=== PATIENT | male | born 1990 | race Caucasian/White ===

== ENCOUNTER 2023-09-06 11:32 | Emergency (ER) | payer SELFPAY ==
--- NOTE | ~2023-09-06 | XR_ITS ---
EXAMINATION: XR LUMBOSACRAL SPINE CLINICAL INFORMATION: Pain COMPARISON: None available. TECHNIQUE: Three views of the lumbosacral spine. FINDINGS: The vertebral bodies and posterior elements are normal. The disc spaces are preserved and the vertebral alignment is notable for severe disc space at L5-S1. Generalized endplate spurring. The paraspinal soft tissues are normal. XR/XR lumbar spine 2-3V IMPRESSION: Advanced degenerative disc disease at L5-S1 as above.
[2023-09-06 11:47] VITALS: BP 121/82; PULSE 81; RESP 17; TEMP 36.6; O2SAT 97; BMI 27.7
--- NOTE | 2023-09-06 11:47 | ED_ITS ---
HPI - General Adult General Chief complaint: General Medical Stated complaint: l leg numbness Time Seen by Provider: 09/06/23 13:27 Source: patient and RN notes reviewed Mode of arrival: ambulatory Limitations: no limitations History of Present Illness HPI narrative: This is a 33-year-old male, with no known past medical history, presenting to the emergency department with complaints of acute on chronic back pain x 5 days. Patient reports that he is in the process of moving into his significant other's apartment who lives on the 3rd floor and was caring a dresser on his own and felt a? in his low back. He has had increased pain in his back since the incident. He reports he has had intermittent lower leg numbness and tingling. He states that he has a history back pain in the past where he would occasio lilliam get numbness and tingling into his leg. He denies any current numbness and tingling into his leg. He denies saddle anesthesia, urinary or bowel incontinence. Denies any lower extremity weakness. He states that he has tried [id number] pain medication, and topical pain medication which has provided him without any relief. Denies any other complaints or concerns at this time. MD complaint: Back pain Onset (ago): day(s) Location: back Radiation: distal Severity: moderate Quality: aching Pain Consistency: constant Relieving factors: none Exacerbating factors: none Associated symptoms: denies other symptoms Treatments prior to arrival: none Related Data Previous Rx's Medication Instructions Recorded acetaminophen 650 mg 1,300 mg (2 x 650 mg) PO Q12H #30 09/06/23 tablet,extended release (Tylenol 8 tabs Hour) cyclobenzaprine 10 mg tablet 10 mg PO TID PRN muscle spasm #14 09/06/23 tabs lidocaine 5 % topical patch 1 patch topical DAILY #30 ea 09/06/23 prednisone 20 mg tablet 40 mg (2 x 20 mg) PO DAILY 5 days 09/06/23 #10 tabs Allergies Allergy/AdvReac Type Severity Reaction Status Date / Time No Known Allergies Allergy Unverified 07/27/20 16:23 Review of Systems Review of Systems: Yes all other systems are reviewed and are negative PMFSH Past Medical History Attestation statement: The following information was validated with the patient. Social History Social History Advance Directives: No Advance Directives Information Provided: No Physical Exam ED Vital Signs: Vital Signs - 24 hr 09/06/23 11:47 Temperature 97.9 F Pulse Rate 81 Respiratory Rate 17 Blood Pressure 121/82 Pulse Oximetry 97 Oxygen Delivery Method Room Air BMI result Body Mass Index 27.7 Const Other: General: Awake, alert, and oriented X3. No acute distress. HEENT: Normal inspection CVS: Normal heart rate and rhythm. Pulses normal. Respiratory: No respiratory distress Skin: Warm, dry, no rashes noted to exposed skin. Normal skin color. Normal skin turgor. Extremities: Normal to inspection Back: Midline spine tenderness to the lumbar spine. Tenderness to palpation along the lumbar paraspinous muscles with spasm noted. Patellar reflexes are 2+. DP pulses 2+. Extremities are well perfused. Strength 5/5. Neuro: Oriented X 3. No motor deficit. No sensory deficit. Course Course Course Narrative: This is an RME: Additional HPI, ROS, PE not included below will be deferred to primary provider. Patient is a 33-year-old male presents emergency department for evaluation of left leg numbness. Lifting a dresser 4 days ago up the stairs, felt a pop in the lower back, has pain radiating down the left lower leg. Tylenol and ibuprofen and topical creams without relief. Denies saddle paresthesias or bladder/bowel dysfunction. Denies genitiurinary symptoms. Plan: XR Lumbar spine, placed in WR pending bed availability for pain management Reevaluation(s) Reevaluation #1: X-rays were performed revealing advanced degenerative disc disease at L5-S1. Discussed this finding with patient and girlfriend at bedside. Given intermittent numbness and tingling down his left leg, will prescribe prednisone, muscle relaxants and Tylenol. Advised the importance of following with with primary care physician regarding this visit as he may need additional MRI. Patient has no red flag symptoms at this time to suggest further imaging and treatment. Will treat conservatively outpatient and given return precautions if any new or worsening symptoms occur. Patient understands and agrees with plan. Patient stable for discharge. Time: 15:13 Medical Decision Making Medical Decision Making MDM Narrative: 33-year-old male presenting to the emergency department with complaints of back pain x5 days. On arrival, vital signs within normal limits. Differential diagnoses includes lumbago versus musculoskeletal spasm / strain versus sciatica. No back pain red flags on history or physical. Presentation not consistent with malignancy (lack of history of malignancy, lack of B symptoms), fracture (no trauma, no bony tenderness to palpation), cauda equina syndrome (no bowel or urinary incontinence/retention, no saddle anesthesia, no distal weakness), pyelonephritis (afebrile, no CVAT, no urinary symptoms). Given the clinical picture, no indication for imaging at this time. Plan: Lumbar spine x-rays Differential Diagnosis Differential Diagnoses: The differential diagnosis associated with the presentation includes See above Independent Interpretation I performed an independent interpretation of an: Plain X-Ray Interpretation: I have reviewed the x-ray and agree with the radiology report. Radiology Impression Discussion of test interpretation with radiology: I have reviewed the radiologist's reading. Radiologist Impression: EXAMINATION: XR LUMBOSACRAL SPINE CLINICAL INFORMATION: Pain COMPARISON: None available. TECHNIQUE: Three views of the lumbosacral spine. FINDINGS: The vertebral bodies and posterior elements are normal. The disc spaces are preserved and the vertebral alignment is notable for severe disc space at L5-S1. Generalized endplate spurring. The paraspinal soft tissues are normal. XR/XR lumbar spine 2-3V IMPRESSION: Advanced degenerative disc disease at L5-S1 as above. Dictated By: John Tracey MD Discharge Plan Discharge Clinical Impression: Back pain Patient Disposition: Home, Self-Care Instructions: Acute Low Back Pain (ED) Additional Instructions: You were seen in the emergency department for back pain. Your x-ray shows advanced degenerative disc disease at L5-S1. Please follow-up with your primary care physician regarding this, you may need additional images or physical therapy for management of your back pain. I am prescribing you multiple medications to help treat your pain and symptoms. Please take prescribed prednisone as directed. Do not take prednisone and ibuprofen together as this increases your risk of bleeding. Take Tylenol as directed. Please take prescribed Flexeril as directed. This may cause drowsiness, do not drink alcohol or drive while taking this medication. If any new or worsening symptoms occur including but not limited to numbness and tingling into your groin, leg weakness, or loss of bowel or bladder control, please go to your closest emergency room. Prescriptions: New cyclobenzaprine 10 mg tablet 10 mg PO TID PRN (Reason: muscle spasm) Qty: 14 0RF prednisone 20 mg tablet 40 mg PO DAILY 5 Days Qty: 10 0RF acetaminophen [Tylenol 8 Hour] 650 mg tablet extended release 1,300 mg PO Q12H Qty: 30 0RF lidocaine 5 % adhesive patch,medicated 1 patch topical DAILY Qty: 30 0RF Rx Instructions: leave on most painful area for up to 12 hrs
--- NOTE | 2023-09-06 13:44 | PC.NURSE ---
Pt is a 33 y/o male who presnts from home for evaluation of lower back pain that started on Friday of this week after lifting a dresser without help. Pt reports feeling something off in lower back at the time of lifting. Following the injury, pt had a few days off from work and tried to reduce symptoms and pain with different positions, alternating heat and ice, and taking OTC ibuprofen without much resolution. Pt returned to work last night and found that he had more pain. After coming off shift this morning, took a dose of ibuprofen with no relief of pain. Pt denies any headache/dizziness, nausea/vomiting, or numbness/tingling in extremities. Pt is able to ambulate, but is slow moving. CSMs are intact in all four extremities.
== END 2023-09-06 15:31 | disposition home or self-care (01) ==
PROVIDERS: Emergency Provider Student in an Organized Health Care Education/Training Program; PCP Internal Medicine
DX: M54.50 Low back pain, unspecified (principal)
CPT/HCPCS: 72100; 99282; 99283

== ENCOUNTER 2024-03-27 09:02 | Emergency (ER) | payer SELFPAY ==
[2024-03-27 09:06] VITALS: BP 139/88; PULSE 84; RESP 19; TEMP 36.6; O2SAT 98; BMI 29.7
--- NOTE | 2024-03-27 10:07 | ED_ITS ---
HPI - General Adult General Chief complaint: Dental/Oral Stated complaint: mouth infection Time Seen by Provider: 03/27/24 09:54 Source: patient Mode of arrival: ambulatory Limitations: no limitations History of Present Illness ED Provider: Meche Angeles NP HPI narrative: Patient is a 33-year-old male presenting to the emergency department with complaint of right lower jaw pain for the past 1-2 weeks. States that he has a known broken tooth but has not followed up with a dentist. He denies discharge or drainage. Denies fevers. Denies any difficulty swallowing. States that he took some Keflex at home without improvement. complaint: dental pain Onset (ago): week(s) Location: mouth Severity: severe Quality: aching Pain Consistency: constant Relieving factors: none Exacerbating factors: eating Associated symptoms: denies other symptoms Treatments prior to arrival: NSAID and other Related Data Previous Rx's ?Medication ?Instructions ?Recorded acetaminophen 650 mg 1,300 mg (2 x 650 mg) PO Q12H #30 09/06/23 tablet,extended release (Tylenol 8 tabs Hour) cyclobenzaprine 10 mg tablet 10 mg PO TID PRN muscle spasm #14 09/06/23 tabs lidocaine 5 % topical patch 1 patch topical DAILY #30 ea 09/06/23 prednisone 20 mg tablet 40 mg (2 x 20 mg) PO DAILY 5 days 09/06/23 #10 tabs amoxicillin 875 mg-potassium 1 tab PO Q12H #14 tabs 03/27/24 clavulanate 125 mg tablet oxycodone 5 mg tablet 5 mg PO Q8H PRN severe pain (scale 03/27/24 score 7-10) #8 tabs Allergies Allergy/AdvReac Type Severity Reaction Status Date / Time No Known Allergies Allergy Verified 03/27/24 09:07 Review of Systems 2 Review of Systems: As per HPI. Yes all other systems are reviewed and are negative Constitutional: Constitutional: Reports as per HPI [facility] Social History Social History Advance Directives: No Advance Directives Information Provided: Yes Physical Exam ED Vital Signs: Vital Signs - 24 hr 03/27/24 09:06 Temperature 98 F Pulse Rate 84 Respiratory Rate 19 Blood Pressure 139/88 Pulse Oximetry 98 Oxygen Delivery Method Room Air BMI result Body Mass Index 29.7 Vital signs have been reviewed and appear to be correct. Blood pressure normal. Heart rate normal. Respiratory rate normal. Temperature normal. Oxygen saturation normal. Const General: cooperative, healthy appearing and no acute distress Orientation/consciousness: oriented to person, oriented to place, oriented to time and patient oriented x3 Limitations: no limitations HENMT Head: Yes normocephalic and Yes atraumatic Ears: external ears normal General nose exam: Normal external nose present Face and sinus: Yes face symmetric Mouth: Normal oral and palatal mucosa present, lip normal, tongue normal, oropharynx normal, moist mucous membranes, no drooling and no trismus Teeth and gingiva: caries and poor dentition Teeth image: 2 1. edentulous in area of #29, #30 with significant caries, surrounding gingiva erythematous, no fluctuance or drainage Throat: Yes uvula midline Eyes Pupils: Equal, round and reactive pupils present Neck Neck: Yes normal visual inspection, Yes full ROM, Yes no lymphadenopathy and Yes supple Resp Effort & Inspection: normal respiratory effort and able to speak in complete sentences Auscultation: clear to auscultation bilaterally Cardio Rate: regular rate Rhythm: regular rhythm Heart sounds: S1 normal heart sound present and S2 normal heart sound present GI Palpation (GI): Soft to palpation and nontender Auscultation: normoactive bowel sounds General: Yes no CVA tenderness Back/Spine/Pelvis Back: no CVA tenderness Skin General skin exam: elasticity normal and turgor normal Neuro General: oriented to person, oriented to place, oriented to time, patient oriented x3, moves all extremities, no focal motor deficits and CN's II-XI intact bilaterally Cranial nerves: Yes Equal, round and reactive pupils present Cognition (Neuro): normal cognition Extrem General: Yes full ROM, Yes no pedal edema and Yes no calf tenderness Psych Mental Status: mental status grossly normal Affect: normal affect Thought process: Normal thought process present Medical Decision Making Medical Decision Making MDM Narrative: Patient is a 33-year-old male presenting to the emergency department with complaint of right lower jaw pain for the past 1-2 weeks. On exam patient is awake, A+Ox3, VS WNL, afebrile, normal neurological exam without focal deficits, physical exam findings as above. Given reported symptoms and physical exam findings, initial differential includes dental caries, dental infection, dental abscess. No evidence of abscess. Will treat with course of augmentin, oxycodone for severe pain. No concerns on review of [employer]. Will provide patient with list of dental clinics as he states he has no dentist. Return precautions discussed at bedside. Patient verbalized understanding of and agreement with plan. Differential Diagnosis Differential Diagnoses: The differential diagnosis associated with the presentation includes As per MDM. External Record Review External record reviewed: Inpatient record, Office record and Outpatient record Prescription Management I considered prescription management with: Pain Medication and Antibiotic Discharge Plan Discharge Clinical Impression: Dental caries, Pain, dental, Dental infection Patient Disposition: Home, Self-Care Instructions: Dental Abscess (ED), Toothache (ED), Tooth Extraction (DC), Root Canal (DC) Additional Instructions: You were evaluated in the emergency department today for complaint of dental pain. You are being treated for a dental infection with antibiotics. Please complete the full course of antibiotics as prescribed even if your symptoms improve. IT IS IMPORTANT THAT YOU FOLLOW UP WITH YOUR DENTIST. We recommend that you take 600 mg of ibuprofen or 650 mg Tylenol every 6 hours as needed for pain. If necessary, you can alternate these medications every 3 hours. For example, at 9:00 a.m. take Tylenol, then at noon take ibuprofen, then at 3:00 p.m. take Tylenol, etc.. You are being prescribed a short course of oxycodone for severe pain. Do not take this medication with alcohol. Return to the emergency department if you develop worsening pain, swelling, difficulty swallowing, difficulty breathing, fever, or any other concerning symptoms. Call or visit any of the clinics below to establish care with a dentist: [facility] [address] [place] [address] [facility] [address] [facility], [address] Willy Massey [address] [place] [id number] [facility] [address] [place] [address] [facility] [address] [place] [address] [place] [address] [place] [address] Prescriptions: New amoxicillin-pot clavulanate 875-125 mg tablet 1 tab PO Q12H Qty: 14 0RF oxycodone 5 mg tablet 5 mg PO Q8H PRN (Reason: severe pain (scale score 7-10)) Qty: 8 0RF Rx Instructions: Partial Fill upon patient request. No Action cyclobenzaprine 10 mg tablet 10 mg PO TID PRN (Reason: muscle spasm) Qty: 14 0RF prednisone 20 mg tablet 40 mg PO DAILY 5 Days Qty: 10 0RF acetaminophen [Tylenol 8 Hour] 650 mg tablet extended release 1,300 mg PO Q12H Qty: 30 0RF lidocaine 5 % adhesive patch,medicated 1 patch topical DAILY Qty: 30 0RF Rx Instructions: leave on most painful area for up to 12 hrs Print Language: Belarusian
[2024-03-27 10:50] VITALS: BP 139/88; PULSE 84; RESP 19; TEMP 36.6
== END 2024-03-27 10:50 | disposition home or self-care (01) ==
PROVIDERS: Emergency Provider Emergency Medicine; PCP Internal Medicine
DX: K02.9 Dental caries, unspecified (principal); K04.7 Periapical abscess without sinus; R68.84 Jaw pain
CPT/HCPCS: 99282; 99283